=== PATIENT | female | born 1975 | race Caucasian/White ===

== ENCOUNTER 2024-03-31 04:14 | Day surgery (SDC) | payer OTHER ==
[2024-03-30 08:31] VITALS: BMI 31.1
[2024-03-31] MEDS ORDERED: IBUPROFEN 800 MG/8 ML IJ IVPB PRN (12:49)
[2024-03-31] MEDS ORDERED: IBUPROFEN 600 MG TABLET (FP) PO PRN (12:49)
[2024-03-31] MEDS ORDERED: ONDANSETRON 4 MG/2 ML VIAL IVPUSH PRN (12:49)
[2024-03-31] MEDS ORDERED: oxyCODONE HCL 5 MG TABLET PO PRN (12:49)
[2024-03-31] MEDS ORDERED: ALBUTEROL SO4 HFA INHALER IH ONE (12:54)
[2024-03-31] MEDS ORDERED: MIDAZOLAM HCL 2 MG/2 ML SINGLE DOSE VIAL ONE (12:54)
[2024-03-31] MEDS ORDERED: PROPOFOL 40 ML ONE (12:57)
[2024-03-31] MEDS ORDERED: ELECTROLYTE-148 SOLN 1,000 ML IV SCH (13:00)
[2024-03-31] MEDS ORDERED: ONDANSETRON 4 MG/2 ML VIAL ONE (13:15)
[2024-03-31] MEDS ORDERED: DEXAMETHASONE SOD PHOSPHATE 4 MG/1 ML VIAL ONE (13:15)
[2024-03-31] MEDS ORDERED: ACETAMINOPHEN INJECTION 100 ML IVPB ONE (14:03)
[2024-03-31] MEDS: ACETAMINOPHEN 1000 MG/100 ML BAG IVPB ONE (14:04)
[2024-03-31] MEDS: LACTATED RINGERS SOLUTION 1,000 ML IV SCH (15:25)
[2024-03-31 15:50] VITALS: RESP 18
[2024-03-31 16:23] VITALS: BP 125/83; PULSE 80; TEMP 97.5
== END 2024-03-31 16:35 | disposition home or self-care (01) ==
LOC: JASU-SURG 04:14
PROVIDERS: ATTEND Obstetrics & Gynecology
PROC: 0UDB8ZZ Extraction of Endometrium, Via Natural or Artificial Opening Endoscopic (ICD-10-PCS; principal; 2024-03-31 12:00)
DX: D25.9 Leiomyoma of uterus, unspecified (principal); N93.9 Abnormal uterine and vaginal bleeding, unspecified
CPT/HCPCS: 81025; 86850; 86900; 86901; 88305-TC; 94760; J0131